=== PATIENT | female | born 1985 | race African-American/Black ===

== ENCOUNTER 2016-02-17 12:15 | Emergency (ER) | payer OTHER ==
[~2016-02-17] VITALS: Ht 157.5 cm; Wt 158.8 kg
[2016-02-17] MEDS ORDERED: PROVERA10 MG PO (14:00)
[2016-02-17 14:23] VITALS: BP 148/72
== END 2016-02-17 14:24 | disposition home or self-care (01) ==
LOC: ER 12:15
DX: N93.8 Other specified abnormal uterine and vaginal bleeding (principal); J45.909 Unspecified asthma, uncomplicated